=== PATIENT | female | born 2000 | race Two or more races ===

== ENCOUNTER 2018-08-04 17:56 | Emergency (ER) | payer SELFPAY ==
[~2018-08-04] VITALS: Ht 167.6 cm; Wt 99.8 kg
[2018-08-04] MEDS ORDERED: NKM (18:10)
[2018-08-04 19:09] VITALS: BP 127/77
--- NOTE | 2018-08-04 19:10 | NUR ---
ED Nurse Note:pt. came with sore throat , no fever, VSS
--- NOTE | 2018-08-04 19:11 | Emergency Room Report ---
History of Present Illness General Chief Complaint: Sore Throat Source: Patient Present Illness HPI 17-year-old female presents to the emergency department complaining of 8 out of 10 in severity left ear pain with tenderness that radiates down the side of her neck and reports her jaw 3 days. Patient denies fevers or chills she reports history of frequent ear infections. Patient reports tenderness to the external portions of the ear she states that she has some muffled hearing. Patient denies trauma she denies having or had some emergent water. Patient denies discharge from the ear, neck pain, stiffness or photophobia. Allergies: Coded Allergies: No Known Allergies (Unverified , 08/04/18) Patient History Past Medical History: see triage record Past Surgical History: none Pertinent Family History: none Now: No Reviewed Nursing Documentation: PMH: Agreed; PSxH: Agreed Nursing Documentation-PMH Past Medical History: No Stated History Review of Systems All Other Systems: negative except mentioned in HPI Physical Exam Vital Signs Date Time Temp Pulse Resp B/P (MAP) Pulse Ox O2 Delivery O2 Flow Rate FiO2 08/04/18 18:06 98.8 79 16 127/77 97 Room Air Sp02 EP Interpretation: reviewed, normal General Appearance: no apparent distress, alert, GCS 15, non-toxic Head: normocephalic, atraumatic Eyes: bilateral eye normal inspection, bilateral eye PERRL, bilateral eye abnormal EOM ENT: hearing grossly normal, normal voice, uvula midline, moist mucus membranes , nasal congestion, other - Left ear canal is swollen with external ear tenderness to palpation, creamy white d/c noted in the right ear canal and TM is WNL. Neck: full range of motion, no meningismus, no bony tend Respiratory: lungs clear, normal breath sounds, speaking full sentences Cardiovascular #1: regular rate, rhythm Musculoskeletal: back normal, gait/station normal, normal range of motion, non- tender Neurologic: alert, oriented x3, responsive, motor strength/tone normal, sensory intact, speech normal, grossly normal Psychiatric: judgement/insight normal Skin: normal color, no rash, warm/dry, well hydrated Lymphatic: no adenopathy Medical Decision Making PA Attestation Dr. Painting is my supervising Physician whom patient management has been discussed with. Diagnostic Impression: Primary Impression: Otitis externa Qualified Codes: H60.502 - Unspecified acute noninfective otitis externa, left ear ER Course 17-year-old female presents to the emergency department complaining of 8 out of 10 in severity left ear pain with tenderness that radiates down the side of her neck and reports her jaw 3 days. Patient denies fevers or chills she reports history of frequent ear infections. Patient reports tenderness to the external portions of the ear she states that she has some muffled hearing. Patient denies trauma she denies having or had some emergent water. Patient denies discharge from the ear, neck pain, stiffness or photophobia. Ddx considered but are not limited to OM, OE, mastoiditis, TM perforation, FB, shingles just to name a few. Vital signs: are WNL, pt. is afebrile H&PE are most consistent with otitis Externa ORDERS: none required at this time, the diagnosis is clinical -OTOSCOPY: Left ear canal is swollen with external ear tenderness to palpation , creamy white d/c noted in the right ear canal and TM is WNL. ED INTERVENTIONS: -Ear Wick placed- pt. tolerated well. d/w pt. 48 hour follow-up / return for recheck. if symptoms are not improving then CT will be considered. pt. verbalizes her understanding and agreement with this proposed treatment plan. DISCHARGE: At this time pt. is stable for d/c to home. With PO ABX. Will provide printed patient care instructions, and any necessary prescriptions. Care plan and follow up instructions have been discussed with the patient prior to discharge. Last Vital Signs Date Time Temp Pulse Resp B/P (MAP) Pulse Ox O2 Delivery O2 Flow Rate FiO2 08/04/18 18:06 98.8 79 16 127/77 97 Room Air Disposition: HOME, SELF-CARE Condition: Stable Scripts Acetaminophen* (TYLENOL EXTRA STRENGTH*) 500 Mg Tablet 500 MG ORAL Q6H PRN for Mild Pain/Temp > 100.5, #30 TAB 0 Refills Prov: Kaylene Yanez 08/04/18 Neomycin/Polymyxin B Sulf/Hc* (CORTISPORIN EAR SOLUTION*) 10 Ml Solution 7 DROP LEFT EAR QID for 10 Days, #10 ML 0 Refills Prov: Kaylene Yanez 08/04/18 Patient Instructions: Otitis Externa, [id number] Additional Instructions: Take medications as directed. Follow up with a Primary Care Provider in 3-5 days, even if your symptoms have resolved. --Please review list of primary care clinics, if you do not already have a primary care provider Return sooner to ED if new symptoms occur, or current symptoms become worse. - Please note that this Emergency Department Report was dictated using [employer] cell cleaner technology software, occasionally this can lead to erroneous entry secondary to interpretation by the dictation equipment. Kaylene Yanez Aug 04, 2018 19:11
[2018-08-04] MEDS ORDERED: TYLENOL EXTRA500 MG ORAL (19:50)
[2018-08-04] MEDS ORDERED: CORTISPORIN EAR10 ML LEFT EAR (19:50)
[2018-08-04 20:30] VITALS: BP 127/77
--- NOTE | 2018-08-04 20:30 | NUR ---
ER DISCHARGE NOTE: Patient is cleared to be discharged per ERMD, pt is aox4, on room air, with stable vital signs. pt was given dc and prescription instructions, pt was able to verbalize understanding, pt id band removed without complications. pt is able to ambulate with steady gait. pt took all belongings.
== END 2018-08-04 20:30 | disposition home or self-care (01) ==
LOC: EMR 18:47
DX: H60.502 Unspecified acute noninfective otitis externa, left ear (principal); F17.200 Nicotine dependence, unspecified, uncomplicated
CPT/HCPCS: 99282

== ENCOUNTER 2018-11-29 14:03 | Emergency (ER) | payer OTHER ==
[~2018-11-29] VITALS: Ht 165.1 cm; Wt 99.8 kg
[~2018-11-29 14:03] MED LIST: CORTISPORIN EAR10 ML LEFT EAR; NKM; TYLENOL EXTRA500 MG ORAL
[2018-11-29 14:11] VITALS: BP 111/63
--- NOTE | 2018-11-29 14:12 | NUR ---
ED Nurse Note: pt walked in to ED due to vaginal itchness with whitsh discharge for 1 week. AAO x4. respirations even and non-labored noted. will wait for the further order.
[2018-11-29 14:22] LABS: APPEARANCE,URINE SLIGHTLY CLOUDY; BILIRUBIN, URINE NEGATIVE (NEGATIVE); GLUCOSE, URINE (UA) NEGATIVE (NEGATIVE); KETONES,URINE NEGATIVE (NEGATIVE); LEUKOCYTE ESTERASE ,URINE 3+ (NEGATIVE); NITRITE,URINE NEGATIVE (NEGATIVE); PH,URINE 5 (4.5-8.0); PROTEIN,URINE 1+ (NEGATIVE); UROBILINOGEN,URINE 1 MG/DL (0.0-1.0)
--- NOTE | 2018-11-29 14:24 | Emergency Room Report ---
History of Present Illness General Chief Complaint: Female Urogenital Problems Source: Patient Present Illness HPI 17-year-old female with no significant past medical history here complaining of 1 week of pruritus and white curdy discharge. Patient complains of minimal pain whenever she is having discharge however denies dysuria and urinary frequency. Denies fever and chills. Denies nausea vomiting abdominal pain. Patient reports that started after [place] the [place]. Denies being sexually active recently. Her last menstrual period was a month ago. Has not use any [id number] medication for her symptoms. Patient also does not recall when exactly the was infection and . Denies vaginal bleeding or clotting however complains of one episode of vaginal spotting a week ago. Allergies: Coded Allergies: No Known Allergies (Unverified , 08/04/18) Patient History Past Medical History: see triage record Past Surgical History: unable to obtain Pertinent Family History: none Last Menstrual Period: 09/2018 Now: No Immunizations: UTD Reviewed Nursing Documentation: PMH: Agreed; PSxH: Agreed Nursing Documentation-PMH Past Medical History: No History, Except For Review of Systems All Other Systems: negative except mentioned in HPI Physical Exam Vital Signs Date Time Temp Pulse Resp B/P (MAP) Pulse Ox O2 Delivery O2 Flow Rate FiO2 11/29/18 14:07 98.4 83 20 111/63 (79) 97 Room Air Sp02 EP Interpretation: reviewed, normal General Appearance: normal inspection, well appearing, no apparent distress Head: normocephalic, atraumatic Eyes: bilateral eye normal inspection, bilateral eye PERRL ENT: normal ENT inspection, hearing grossly normal, normal pharynx Neck: normal inspection, full range of motion, supple Respiratory: normal inspection, chest non-tender, lungs clear, no rhonchi, no wheezing Cardiovascular #1: normal inspection, regular rate, rhythm, no edema, no murmur , normal capillary refill Gastrointestinal: normal inspection, non tender, soft, no organomegaly, no guarding, no hernia Rectal: deferred Genitourinary: no CVA tenderness Musculoskeletal: normal inspection, back normal Neurologic: normal inspection, alert, oriented x3 Psychiatric: normal inspection, judgement/insight normal, memory normal Skin: no rash, normal color Lymphatic: normal inspection, no adenopathy Medical Decision Making PA Attestation All my diagnosis and treatment plans were reviewed ad discussed with my supervising physician Dr. Bean Diagnostic Impression: Primary Impression: Intrauterine Additional Impressions: UTI (urinary tract infection) Yeast infection ER Course 17-year-old female with no significant past medical history here complaining of 1 week of pruritus and white curdy discharge. Patient complains of minimal pain whenever she is having discharge however denies dysuria and urinary frequency. Denies fever and chills. Denies nausea vomiting abdominal pain. Patient reports that started after going swimming inside the ocean. Denies being sexually active recently. Her last menstrual period was a month ago. Has not use any rvcc-joo-yfxdidt medication for her symptoms. Patient also does not recall when exactly the was infection and . Denies vaginal bleeding or clotting however complains of one episode of vaginal spotting a week ago. Ddx considered but are not limited to: UTI, pylonephritis, urinary incontinence , vaginitis, intrauterine , threatened Vital signs: are WNL, pt. is afebrile H&PE are most consistent with: Intrauterine first diagnosed, UTI, yeast infection ORDERS: UA, CBC, CMP, beta hCG quantitative, OB ultrasound ED INTERVENTIONS: None required at this time. DISCHARGE: At this time pt. is stable for d/c to home. Will provide printed patient care instructions, and any necessary prescriptions. Care plan and follow up instructions have been discussed with the patient prior to discharge. Patient to follow-up with her primary care provider take vitamins as been prescribed patient has good support system and plans to maintain the . This is her first . Patient was notified to return to the emergency room if vaginal bleeding or spotting or cramping. White blood cells in urine and leukocytes positive CT/MRI/US Diagnostic Results CT/MRI/US Diagnostic Results : Imaging Test Ordered: OB ultrasound Impression FINDINGS: Gestation: Fluid or potentially early intrauterine gestational sac. No internal components are present confirm an IUP at this time. Uterus/cervix: Uterus measures 7.9 x 4.7 x 5.27 m. Ovaries: Right ovary measures 3.8 x 2.3 x 2.5 cm. No complex lesion or torsion. Left ovary measures 3.2 x 2.8 x 1.6 cm.. No complex lesion or torsion. Free fluid: Small amount of fluid in the pelvis. IMPRESSION: Fluid or potentially early intrauterine gestational sac. No internal components are present confirm an IUP at this time. Findings are nonspecific and may be seen in the setting of early IUP, SAB or occult ectopic. Correlation and followup needed. Last Vital Signs Date Time Temp Pulse Resp B/P (MAP) Pulse Ox O2 Delivery O2 Flow Rate FiO2 11/29/18 14:11 98.4 83 20 111/63 97 Room Air Disposition: HOME, SELF-CARE Condition: Stable Scripts Miconazole Nitrate (Monistat 1) 1 Each Kit 1 EACH VG DAILY for 7 Days, #7 PACK Prov: Kayla Koenig 11/29/18 Nitrofurantoin Monohyd/M-Cryst* (MACROBID 100 MG*) 100 Mg Capsule 100 MG ORAL EVERY 12 HOURS for 7 Days, #14 CAP Prov: Kayla Koenig 11/29/18 No.137/Iron/Folic Acd ( Vitamin Tablet) 1 Each Tablet 1 EACH PO DAILY for 30 Days, #30 TAB Prov: Kayla Koenig 11/29/18 Referrals: Arcadio WALTON,REFERRING (PCP) Patient Instructions: Care, Urinary Tract Infection, Vaginal Yeast Infection, Adult Additional Instructions: Take your vitamins make an appointment with your primary care physician for referral to [facility] if abdominal cramping and bleeding return to the emergency room. Kayla Koenig Nov 29, 2018 14:24
[2018-11-29 14:28] LABS: COLOR,URINE YELLOW
[2018-11-29 14:44] LABS: BASOPHILS % (AUTO) 1.3 % (0.0-2.0); EOSINOPHILS % (AUTO) 2.3 % (0.0-3.0); HEMATOCRIT 40.3 % (37.0-47.0); HEMOGLOBIN 13.8 G/DL (12.0-16.0); LYMPHOCYTES % (AUTO) 34.9 % (20.0-45.0); MEAN CORPUSCULAR VOLUME 89 FL (80-99); NEUTROPHILS % (AUTO) 55.5 % (45.0-75.0); PLATELET COUNT 287 K/UL (150-450); RED BLOOD COUNT 4.53 M/UL (4.20-5.40); RED CELL DISTRIBUTION WIDTH 10.9 % (11.6-14.8); WHITE BLOOD COUNT 10.9 K/UL (4.8-10.8)
[2018-11-29 14:53] LABS: ANION GAP 7 mmol/L (5-15); BLOOD UREA NITROGEN 9 mg/dL (7-18); CALCIUM 8.9 MG/DL (8.5-10.1); CARBON DIOXIDE 27 MMOL/L (21-32); CHLORIDE 104 MMOL/L (98-107); CREATININE 0.8 MG/DL (0.55-1.30); POTASSIUM 3.9 MMOL/L (3.5-5.1); SODIUM 138 MMOL/L (136-145)
[2018-11-29 14:58] LABS: ALANINE AMINOTRANSFERASE 20 U/L (12-78); ALBUMIN/GLOBULIN RATIO 1.3 (1.0-2.7); ALKALINE PHOSPHATASE 63 U/L (46-116); ASPARTATE AMINO TRANSFERASE 14 U/L (15-37); BILIRUBIN,TOTAL 0.4 MG/DL (0.2-1.0)
--- NOTE | 2018-11-29 17:05 | Diagnostic Imaging Report ---
EXAM: US First Trimester, Transabdominal US , Transvaginal CLINICAL HISTORY: PAIN TECHNIQUE: Real-time transabdominal and transvaginal obstetrical ultrasound of the maternal pelvis and a first trimester with image documentation. Transvaginal imaging was used for better evaluation of the fetus and adnexa. COMPARISON: No relevant prior studies available. FINDINGS: Gestation: Fluid or potentially early intrauterine gestational sac. No internal components are present confirm an IUP at this time. Uterus/cervix: Uterus measures 7.9 x 4.7 x 5.27 m. Ovaries: Right ovary measures 3.8 x 2.3 x 2.5 cm. No complex lesion or torsion. Left ovary measures 3.2 x 2.8 x 1.6 cm.. No complex lesion or torsion. Free fluid: Small amount of fluid in the pelvis. IMPRESSION: Fluid or potentially early intrauterine gestational sac. No internal components are present confirm an IUP at this time. Findings are nonspecific and may be seen in the setting of early IUP, SAB or occult ectopic. Correlation and followup needed.
[2018-11-29] MEDS ORDERED: NITROFURANTOIN100 M2 ORAL (17:08)
[2018-11-29] MEDS ORDERED: PRENATAL VITAM1 EA10 PO (17:08)
[2018-11-29] MEDS ORDERED: MONISTAT 11 EACH VG (17:08)
[2018-11-29 17:14] VITALS: BP 122/70
--- NOTE | 2018-11-29 17:15 | NUR ---
ER DISCHARGE NOTE: Patient is cleared to be discharged per ERMD with family member, pt is aox4, on room air, with stable vital signs. pt was given dc and prescription instructions, pt was able to verbalize understanding, pt id band removed. pt is able to ambulate with steady gait. pt took all belongings.
== END 2018-11-29 17:17 | disposition home or self-care (01) ==
LOC: EMR 14:19
DX: N39.0 Urinary tract infection, site not specified (principal); B37.9 Candidiasis, unspecified
CPT/HCPCS: 36415; 76801; 80053; 81001; 81025; 84702; 85025; 87086; 87491; 87590; 99284

== ENCOUNTER 2018-12-02 23:41 | Emergency (ER) | payer OTHER ==
[~2018-12-02] VITALS: Ht 165.1 cm; Wt 99.8 kg
[~2018-12-02 23:41] MED LIST changes: +MONISTAT 11 EACH VG; +NITROFURANTOIN100 M2 ORAL; +PRENATAL VITAM1 EA10 PO
[2018-12-03 00:20] VITALS: BP 119/69
--- NOTE | 2018-12-03 01:00 | NUR ---
ED Nurse Note: pt walked in c/o discomfort in vaginal area with swelling, discharge and lower abd cramping x 4 days, pt reports she was in the ED 4 days ago and the pain hasn't gotten any better. will cont monitor.
[2018-12-03] MEDS ORDERED: Fluconazole 100mg tab ORAL ONE (02:45)
[2018-12-03] MEDS ORDERED: BENADRYL25 MG ORAL (03:28)
[2018-12-03 03:38] VITALS: BP 115/68
--- NOTE | 2018-12-03 03:38 | NUR ---
ED Nurse Note: pt cleared to be d/c pe ERMD, pt discharge and aftercare instruction w/ prescription provided, pt advised to follow up with last marker or return to ed if changes in condition, pt education done via discussion and handout, pt verbalized understanding and agrees with plan, vss, ambulatory w/ steady gait, left w/ all belongings, pt accompanied by aunt.
--- NOTE | 2018-12-03 06:07 | Emergency Room Report ---
History of Present Illness General Chief Complaint: Vaginal Source: Patient Present Illness HPI Patient is a 17-year-old female who presented after increased vulvar discomfort and vaginal itching. Patient had recently been seen in the emergency department was given a prescription for Monistat after a yeast infection. She was noted to be . Patient reports having increased vaginal spotting. She denies any severe abdominal pain she reports having some mild uterine cramping. She had previous ultrasound 4 days ago which showed intrauterine . Allergies: Coded Allergies: No Known Allergies (Unverified , 08/04/18) Patient History Past Medical History: see triage record Last Menstrual Period: 10/29/18 Now: Yes - ~ 5-6 weeks : 1 Para: 0 Reviewed Nursing Documentation: PMH: Agreed; PSxH: Agreed Nursing Documentation-PMH Past Medical History: No Stated History Review of Systems All Other Systems: negative except mentioned in HPI Physical Exam Vital Signs Date Time Temp Pulse Resp B/P (MAP) Pulse Ox O2 Delivery O2 Flow Rate FiO2 12/03/18 00:02 98.2 58 16 112/70 (84) 97 Room Air Sp02 EP Interpretation: reviewed, normal General Appearance: normal inspection, well appearing, no apparent distress, alert, GCS 15 Head: atraumatic ENT: normal ENT inspection, hearing grossly normal, normal voice Neck: normal inspection, full range of motion, supple, no bony tend Respiratory: normal inspection, lungs clear, normal breath sounds, no respiratory distress, no retraction, no wheezing Cardiovascular #1: regular rate, rhythm, no edema Gastrointestinal: normal inspection, normal bowel sounds, non tender, soft, no guarding, no hernia Genitourinary: no CVA tenderness Musculoskeletal: normal inspection, back normal, normal range of motion Neurologic: normal inspection, alert, oriented x3, responsive, bioprocess engineer III-XII nml as tested, motor strength/tone normal, DTRs symmetric, speech normal Psychiatric: normal inspection, judgement/insight normal, mood/affect normal Medical Decision Making Diagnostic Impression: Primary Impression: Intrauterine Additional Impression: Contact dermatitis Last Vital Signs Date Time Temp Pulse Resp B/P (MAP) Pulse Ox O2 Delivery O2 Flow Rate FiO2 12/03/18 03:38 98.0 85 16 115/68 98 Room Air Disposition: HOME, SELF-CARE Condition: Stable Scripts Diphenhydramine Hcl* (BENADRYL*) 25 Mg Capsule 25 MG ORAL Q6H PRN for Itching, #30 CAP Prov: Macario Bean MD 12/03/18 Patient Instructions: Threatened Miscarriage, [id number], Urinary Tract Infection Macario Bean MD Dec 03, 2018 06:07
== END 2018-12-03 03:38 | disposition home or self-care (01) ==
LOC: EMR 12-03 01:39
DX: O99.711 Diseases of the skin and subcutaneous tissue complicating pregnancy, first trimester (principal); Z3A.01 Less than 8 weeks gestation of pregnancy; L25.9 Unspecified contact dermatitis, unspecified cause
CPT/HCPCS: 99282